=== PATIENT | male | born 1950 | race Caucasian/White ===

== ENCOUNTER 2016-06-26 08:39 | Inpatient (IN) | payer OTHER ==
[~2016-06-26] VITALS: Ht 170.2 cm; Wt 78.1 kg
[~2016-06-26 08:39] MED LIST: B/P MED; CATAPRES0.1 MG PO; CRESTOR20 MG PO; FLOMAX0.4 MG PO; KEFLEX500 MG PO; KLONOPIN0.5 M1 PO; KLONOPIN2 MG PO; LIBRIUM25 MG PO; METHADONE10 MG PO; NEXIUM20 MG PO; NOHOMEMEDS; PAXIL10 MG PO; PERCOCET 10/1 TABLET PO; PERCOCET 5/31 TABLET PO; PROZAC20 MG PO; PROZAC40 MG PO; ZESTRIL,PRINIV2.5 MG PO
[2016-06-26 09:59] LABS: EOSINOPHIL (%) 0.1 % (0-5); HEMATOCRIT 54.1 % (38.0-50.0); IMMATURE GRANULOCYTE (%) 0.3 % (0.0-0.7); INSTRUMENT ABS NEUTROPHIL CT 8.8 K/uL; LYMPHOCYTE COUNT 0.9 K/uL (1.0-2.8); MCH 26.8 PG (29.0-34.0); MCHC 32.3 G/DL (30.0-36.0); MCV 82.7 FL (86-99); MEAN PLAT.VOLUME 10.6 uM^3 (9.0-12.4); MONOCYTE (%) 5.3 % (3-12); MONOCYTE COUNT 0.5 K/uL (0-0.8); NEUTROPHIL (%) 85.7 % (45-76); NEUTROPHIL COUNT 8.8 K/uL (1.8-6.4); PLATELET COUNT 201 K/uL (156-360); RBC DIS.WIDTH-SD 40.6 % (39-53); RED BLOOD COUNT 6.54 M/uL (4.00-5.50); WHITE BLOOD COUNT 10.2 K/uL (4.1-10.2)
[2016-06-26 10:11] LABS: CHLORIDE 108 mEq/L (99-109); POTASSIUM 3.9 mEq/L (3.7-5.4); SODIUM 139 mEq/L (136-147)
[2016-06-26 10:13] LABS: GLUCOSE 110 mg/dL (70-99)
[2016-06-26 10:14] LABS: ANION GAP 9 MEQ/L (2-14)
[2016-06-26 10:15] LABS: TOTAL BILIRUBIN 0.8 mg/dL (0.0-1.0)
[2016-06-26 10:17] LABS: ALKALINE PHOSPHATASE 80 IU/L (3-129); GFR ESTIMATE (CALCULATED) > 59 mL/min/
[2016-06-26 10:18] LABS: UREA NITROGEN (BUN) 19 mg/dL (9-23)
[2016-06-26 10:20] LABS: LIPASE 11 U/L (1.0-51.0)
[2016-06-26 12:07] LABS: ADD MIUA? YES; BILIRUBIN NEGATIVE; BLOOD NEGATIVE; COLOR YELLOW ((YELLOW)); GLUCOSE (STRIP) 50; KETONES 5; LEUKOCYTES NEGATIVE; NITRITE NEGATIVE; PROTEIN (STRIP) NEGATIVE; SPECIFIC GRAVITY 1.028 (1.000-1.030); UROBILINOGEN 0.2 MG/DL (0.2-1.0)
[2016-06-26 12:21] LABS: BACTERIA RARE /HPF; EPITHELIAL CELLS NONE SEEN /HPF; MUCUS 2+ /LPF; RED BLOOD CELLS 0-5 /HPF (0-5); WHITE BLOOD CELLS 0-5 /HPF (0-5)
[2016-06-26 20:00] VITALS: BP 144/80
[2016-06-26 20:14] VITALS: BP 144/80
[2016-06-26 22:34] LABS: EOSINOPHIL (%) 0.6 % (0-5); EOSINOPHIL COUNT 0.1 K/uL (0-0.3); HEMATOCRIT 49.6 % (38.0-50.0); IMMATURE GRANULOCYTE (%) 0.3 % (0.0-0.7); INSTRUMENT ABS NEUTROPHIL CT 5.8 K/uL; MCH 26.9 PG (29.0-34.0); MCHC 31.9 G/DL (30.0-36.0); MCV 84.4 FL (86-99); MONOCYTE (%) 7.7 % (3-12); MONOCYTE COUNT 0.7 K/uL (0-0.8); NEUTROPHIL (%) 67.4 % (45-76); NEUTROPHIL COUNT 5.8 K/uL (1.8-6.4); PLATELET COUNT 180 K/uL (156-360); RBC DIS.WIDTH-CV 13.6 % (11.8-14.6); RBC DIS.WIDTH-SD 42.5 % (39-53); RED BLOOD COUNT 5.88 M/uL (4.00-5.50); WHITE BLOOD COUNT 8.6 K/uL (4.1-10.2)
[2016-06-26 22:43] LABS: CHLORIDE 110 mEq/L (99-109); POTASSIUM 4.1 mEq/L (3.7-5.4); SODIUM 138 mEq/L (136-147)
[2016-06-26 22:45] LABS: GLUCOSE 87 mg/dL (70-99)
[2016-06-26 22:46] LABS: ANION GAP 6 MEQ/L (2-14)
[2016-06-26 22:49] LABS: GFR ESTIMATE (CALCULATED) > 59 mL/min/; UREA NITROGEN (BUN) 16 mg/dL (9-23)
[2016-06-27 00:04] VITALS: BP 131/82
[2016-06-27 07:39] VITALS: BP 136/85
[2016-06-27 11:30] VITALS: BP 139/95
[2016-06-27 15:32] VITALS: BP 140/86
[2016-06-27 23:43] VITALS: BP 132/85
[2016-06-28 08:33] VITALS: BP 149/87
== END 2016-06-28 16:18 | disposition home or self-care (01) | DRG 389 ==
LOC: EME 08:39 → EDOF 15:25 → 3EAST 15:25
PROVIDERS: Emergency Medicine; Surgery
DX: K56.60 Unspecified intestinal obstruction (principal); F33.9 Major depressive disorder, recurrent, unspecified; F41.9 Anxiety disorder, unspecified; M19.90 Unspecified osteoarthritis, unspecified site; K57.30 Diverticulosis of large intestine without perforation or abscess without bleeding; E78.5 Hyperlipidemia, unspecified; I10 Essential (primary) hypertension; Z60.2 Problems related to living alone; N20.0 Calculus of kidney; N28.1 Cyst of kidney, acquired
CPT/HCPCS: 74020; 74177; 80048 91; 80053; 81003; 83605; 83690; 84484; 85025; 85025 91; 99281; 99285; J1170; J1650; J2270; J2405; J3010; J7030; J7120

== ENCOUNTER 2016-11-17 06:27 | Inpatient (IN) | payer OTHER ==
[~2016-11-17] VITALS: Ht 175.3 cm; Wt 85.0 kg
[2016-11-17 08:40] LABS: BASOPHIL COUNT 0.1 K/uL (0-0.1); EOSINOPHIL (%) 0.1 % (0-5); HEMATOCRIT 51.3 % (38.0-50.0); IMMATURE GRANULOCYTE (%) 0.5 % (0.0-0.7); IMMATURE GRANULOCYTE COUNT 0.1 K/uL; INSTRUMENT ABS NEUTROPHIL CT 14.9 K/uL; LYMPHOCYTE COUNT 0.9 K/uL (1.0-2.8); MCH 27.2 PG (29.0-34.0); MCHC 31.8 G/DL (30.0-36.0); MCV 85.6 FL (86-99); MEAN PLAT.VOLUME 10.4 uM^3 (9.0-12.4); MONOCYTE (%) 5.4 % (3-12); MONOCYTE COUNT 0.9 K/uL (0-0.8); NEUTROPHIL (%) 88.6 % (45-76); NEUTROPHIL COUNT 14.9 K/uL (1.8-6.4); PLATELET COUNT 209 K/uL (156-360); RBC DIS.WIDTH-SD 44.1 % (39-53); RED BLOOD COUNT 5.99 M/uL (4.00-5.50); WHITE BLOOD COUNT 16.8 K/uL (4.1-10.2)
[2016-11-17 08:45] LABS: PROTHROMBIN TIME 11.2 SEC (10.2-12.9)
[2016-11-17 08:51] LABS: CHLORIDE 108 mEq/L (99-109); SODIUM 141 mEq/L (136-147)
[2016-11-17 08:54] LABS: GLUCOSE 108 mg/dL (70-99)
[2016-11-17 08:55] LABS: ANION GAP 8 MEQ/L (2-14)
[2016-11-17 08:56] LABS: TOTAL BILIRUBIN 0.3 mg/dL (0.0-1.0)
[2016-11-17 08:57] LABS: ALKALINE PHOSPHATASE 80 IU/L (3-129); GFR ESTIMATE (CALCULATED) > 59 mL/min/
[2016-11-17 08:58] LABS: UREA NITROGEN (BUN) 18 mg/dL (9-23)
[2016-11-17 12:00] VITALS: BP 178/105
[2016-11-17 15:36] VITALS: BP 167/89
[2016-11-17 19:00] VITALS: BP 157/93
[2016-11-17 22:45] VITALS: BP 139/83
[2016-11-18 03:00] VITALS: BP 125/78
[2016-11-18 05:32] LABS: CHLORIDE 105 mEq/L (99-109); POTASSIUM 3.6 mEq/L (3.7-5.4); SODIUM 139 mEq/L (136-147)
[2016-11-18 05:34] LABS: GLUCOSE 125 mg/dL (70-99)
[2016-11-18 05:35] LABS: ANION GAP 11 MEQ/L (2-14)
[2016-11-18 05:37] LABS: TOTAL BILIRUBIN 0.8 mg/dL (0.0-1.0)
[2016-11-18 05:38] LABS: ALKALINE PHOSPHATASE 71 IU/L (3-129); GFR ESTIMATE (CALCULATED) > 59 mL/min/
[2016-11-18 05:39] LABS: UREA NITROGEN (BUN) 17 mg/dL (9-23)
[2016-11-18 05:42] LABS: HEMATOCRIT 45.6 % (38.0-50.0); MCH 27.5 PG (29.0-34.0); MCHC 31.8 G/DL (30.0-36.0); MCV 86.5 FL (86-99); MEAN PLAT.VOLUME 10.9 uM^3 (9.0-12.4); PLATELET COUNT 192 K/uL (156-360); RBC DIS.WIDTH-CV 14.1 % (11.8-14.6); RBC DIS.WIDTH-SD 45.4 % (39-53); RED BLOOD COUNT 5.27 M/uL (4.00-5.50); WHITE BLOOD COUNT 11.5 K/uL (4.1-10.2)
[2016-11-18 07:19] VITALS: BP 135/81
[2016-11-18 11:48] VITALS: BP 135/83
[2016-11-18 16:25] VITALS: BP 143/81
[2016-11-18 17:42] VITALS: BP 140/85
[2016-11-18 19:16] VITALS: BP 141/86
[2016-11-19 03:38] VITALS: BP 176/100
[2016-11-19 07:15] VITALS: BP 143/84
[2016-11-19] MEDS ORDERED: PERCOCET 10/1 TABLET PO (10:57)
[2016-11-19 14:55] VITALS: BP 142/88
== END 2016-11-19 16:04 | disposition home or self-care (01) | DRG 200 ==
LOC: EME 06:27 → EDOF 10:00 → ENRESERV 10:31 → 4EAST 11:51
PROVIDERS: Emergency Medicine; Surgery
PROC: 0W9B30Z Drainage of Left Pleural Cavity with Drainage Device, Percutaneous Approach (ICD-10-PCS; principal; 2016-11-17)
DX: S27.0XXA Traumatic pneumothorax, initial encounter (principal); S22.42XA Multiple fractures of ribs, left side, initial encounter for closed fracture; F32.9 Major depressive disorder, single episode, unspecified; F41.9 Anxiety disorder, unspecified; G89.29 Other chronic pain; W10.9XXA Fall (on) (from) unspecified stairs and steps, initial encounter; Z87.442 Personal history of urinary calculi
CPT/HCPCS: 71010; 71020; 71101; 80053; 85025; 85027; 85610; 90686; 99281; 99285; J1170; J2250; J2270; J3010; J3480; J7030; S0028

== ENCOUNTER 2016-12-17 20:51 | Emergency (ER) | payer OTHER ==
[~2016-12-17] VITALS: Ht 170.2 cm; Wt 78.9 kg
[2016-12-17] MEDS ORDERED: NORCO 5/3251 TABLET PO (21:24)
[2016-12-17] MEDS ORDERED: CLEOCIN300 MG PO (21:24)
[2016-12-17 21:58] VITALS: BP 124/92
== END 2016-12-17 21:58 | disposition home or self-care (01) ==
LOC: EME 20:51
DX: K04.7 Periapical abscess without sinus (principal); K02.9 Dental caries, unspecified; K03.81 Cracked tooth
CPT/HCPCS: 99281; 99283

== ENCOUNTER 2017-02-06 05:56 | Emergency (ER) | payer OTHER ==
[~2017-02-06] VITALS: Ht 175.3 cm; Wt 83.4 kg
[~2017-02-06 05:56] MED LIST changes: +CLEOCIN300 MG PO; +NORCO 5/3251 TABLET PO
[2017-02-06 08:23] LABS: BASOPHIL (%) 0.6 % (0-1); BASOPHIL COUNT 0.1 K/uL (0-0.1); EOSINOPHIL (%) 0.5 % (0-5); HEMATOCRIT 55.4 % (38.0-50.0); HEMOGLOBIN 17.9 G/DL (12.5-16.6); IMMATURE GRANULOCYTE (%) 0.3 % (0.0-0.7); LYMPHOCYTE COUNT 1.9 K/uL (1.0-2.8); MCH 27.1 PG (29.0-34.0); MCHC 32.3 G/DL (30.0-36.0); MCV 83.8 FL (86-99); MONOCYTE COUNT 0.7 K/uL (0-0.8); NEUTROPHIL (%) 65.6 % (45-76); NEUTROPHIL COUNT 5.2 K/uL (1.8-6.4); PLATELET COUNT 219 K/uL (156-360); RBC DIS.WIDTH-CV 15.1 % (11.8-14.6); RED BLOOD COUNT 6.61 M/uL (4.00-5.50)
[2017-02-06 08:33] LABS: ALBUMIN 3.8 g/dL (3.2-4.8); CHLORIDE 105 mEq/L (99-109); POTASSIUM 4.6 mEq/L (3.7-5.4); SODIUM 136 mEq/L (136-147)
[2017-02-06 08:35] LABS: GLUCOSE 103 mg/dL (70-99)
[2017-02-06 08:36] LABS: TOTAL PROTEIN 7.7 g/dL (6.4-8.3)
[2017-02-06 08:37] LABS: TOTAL BILIRUBIN 0.4 mg/dL (0.0-1.0)
[2017-02-06 08:39] LABS: ALKALINE PHOSPHATASE 121 IU/L (3-129); CREATININE 0.9 mg/dL (0.6-1.3); GFR ESTIMATE (CALCULATED) > 59 mL/min/ (58.99-99999)
[2017-02-06 08:40] LABS: UREA NITROGEN (BUN) 21 mg/dL (9-23)
[2017-02-06 08:41] LABS: AST (GOT) 27 IU/L (2-34)
[2017-02-06 08:42] LABS: ALT (GPT) 33 IU/L (3-49)
[2017-02-06 08:43] LABS: TROP-I INTERPRETATION NEGATIVE; TROPONIN-I < 0.01 ng/mL (0.0-0.30)
[2017-02-06 09:56] LABS: D-DIMER ELISA < 150.00 ng/mLDDU (<230)
[2017-02-06 11:15] LABS: TROP-I INTERPRETATION NEGATIVE; TROPONIN-I < 0.01 ng/mL (0.0-0.30)
[2017-02-06] MEDS ORDERED: LIDODERM 5% P1 PATCH TD (12:02)
[2017-02-06] MEDS ORDERED: NAPROXEN500 MG PO (12:02)
[2017-02-06 13:03] VITALS: BP 135/91
== END 2017-02-06 13:21 | disposition home or self-care (01) ==
LOC: EME 05:56
PROVIDERS: Physician Assistant
DX: R09.1 Pleurisy (principal); M54.6 Pain in thoracic spine
CPT/HCPCS: 71046; 80053; 84484; 85025; 85379; 93005; 99281; 99285; J1885; J2270; J3010; J7120

== ENCOUNTER 2017-07-09 15:44 | Inpatient (IN) | payer OTHER ==
[~2017-07-09] VITALS: Ht 185.4 cm; Wt 81.6 kg
[2017-07-09] VITALS (9 sets, daily range): BP systolic 108–134; BP diastolic 71–98
[~2017-07-09 15:44] MED LIST changes: +LIDODERM 5% P1 PATCH TD; +NAPROXEN500 MG PO
[2017-07-09 15:57] LABS: BASOPHIL (%) 0.6 % (0-1); BASOPHIL COUNT 0.1 K/uL (0-0.1); EOSINOPHIL (%) 0.6 % (0-5); EOSINOPHIL COUNT 0.1 K/uL (0-0.3); HEMATOCRIT 43.9 % (38.0-50.0); HEMOGLOBIN 13.7 G/DL (12.5-16.6); IMMATURE GRANULOCYTE (%) 1.2 % (0.0-0.7); LYMPHOCYTE COUNT 3.1 K/uL (1.0-2.8); MCH 27.8 PG (29.0-34.0); MCHC 31.2 G/DL (30.0-36.0); MONOCYTE (%) 5.1 % (3-12); MONOCYTE COUNT 0.5 K/uL (0-0.8); NEUTROPHIL (%) 57.5 % (45-76); NEUTROPHIL COUNT 5.2 K/uL (1.8-6.4); PLATELET COUNT 173 K/uL (156-360); RBC DIS.WIDTH-CV 13.2 % (11.8-14.6); RBC DIS.WIDTH-SD 43.3 % (39-53); RED BLOOD COUNT 4.93 M/uL (4.00-5.50)
[2017-07-09 16:09] LABS: AMYLASE 102 IU/L (1-118); CHLORIDE 106 mEq/L (99-109); POTASSIUM 3.8 mEq/L (3.7-5.4); SODIUM 138 mEq/L (136-147)
[2017-07-09 16:11] LABS: GLUCOSE 232 mg/dL (70-99)
[2017-07-09 16:14] LABS: SERUM ETHYL ALCOHOL < 10 mg/dL
[2017-07-09 16:15] LABS: CREATININE 1.3 mg/dL (0.6-1.3); GFR ESTIMATE (CALCULATED) 59 mL/min/ (58.99-99999)
[2017-07-09 16:16] LABS: UREA NITROGEN (BUN) 20 mg/dL (9-23)
[2017-07-09 16:18] LABS: LIPASE 20 U/L (1.0-51.0)
[2017-07-09 17:16] LABS: BASOPHIL (%) 0.3 % (0-1); EOSINOPHIL (%) 0.2 % (0-5); HEMATOCRIT 43.7 % (38.0-50.0); HEMOGLOBIN 14.3 G/DL (12.5-16.6); IMMATURE GRANULOCYTE (%) 0.7 % (0.0-0.7); LYMPHOCYTE (%) 5.9 % (15-42); LYMPHOCYTE COUNT 0.9 K/uL (1.0-2.8); MCH 27.9 PG (29.0-34.0); MCHC 32.7 G/DL (30.0-36.0); MCV 85.4 FL (86-99); MONOCYTE (%) 3.9 % (3-12); MONOCYTE COUNT 0.6 K/uL (0-0.8); NEUTROPHIL COUNT 13.4 K/uL (1.8-6.4); PLATELET COUNT 156 K/uL (156-360); RBC DIS.WIDTH-CV 13.8 % (11.8-14.6); RBC DIS.WIDTH-SD 43.5 % (39-53); RED BLOOD COUNT 5.12 M/uL (4.00-5.50)
[2017-07-09 17:24] LABS: INTER. NORMALIZED RATIO 1.2
[2017-07-09 17:27] LABS: PTT 29.7 SEC (25-37)
[2017-07-09 17:28] LABS: ALBUMIN 2.8 g/dL (3.2-4.8); POTASSIUM 3.9 mEq/L (3.7-5.4); SODIUM 144 mEq/L (136-147)
[2017-07-09 17:30] LABS: CHLORIDE 117 mEq/L (99-109); TOTAL PROTEIN 4.4 g/dL (6.4-8.3)
[2017-07-09 17:32] LABS: GLUCOSE 102 mg/dL (70-99); TOTAL BILIRUBIN 0.5 mg/dL (0.0-1.0)
[2017-07-09 17:34] LABS: ALKALINE PHOSPHATASE 62 IU/L (3-129); CREATININE 0.9 mg/dL (0.6-1.3); GFR ESTIMATE (CALCULATED) > 59 mL/min/ (58.99-99999)
[2017-07-09 17:35] LABS: UREA NITROGEN (BUN) 19 mg/dL (9-23)
[2017-07-09 17:36] LABS: AST (GOT) 52 IU/L (2-34)
[2017-07-09 17:37] LABS: ALT (GPT) 42 IU/L (3-49)
[2017-07-09 20:48] LABS: COMMENTS - BLOOD GASES A+C+; DEVICE VENT; SITE RR
[2017-07-09 20:49] LABS: BASE EXCESS -5.8 mEq/L (-3 to +3); BICARBONATE 18.8 mEq/L (22-26); CARBOXY HGB 1.3 % (0-5); FI02 100 %; MECHANICAL RATE 20 resp/min; METHEMOGLOBIN 1.3 % (0-1.5); MODE AC; PCO2 34 mm Hg (35-45); PEEP 5 CM/H20; PO2 308 mm Hg (80-100); TIDAL VOLUME 500 ML; TOTAL RESP RATE 20 resp/min; pH 7.35 (7.35-7.45)
[2017-07-09 21:18] LABS: TRIGLYCERIDES 85 MG/DL (Normal: <150)
[2017-07-09 21:20] LABS: CREATINE KINASE 1298 IU/L (1-294)
[2017-07-10] VITALS (11 sets, daily range): BP systolic 112–162; BP diastolic 67–86
[2017-07-10 03:08] LABS: APPEARANCE CLEAR ((CLEAR)); BILIRUBIN NEGATIVE; BLOOD SMALL; COLOR YELLOW ((YELLOW)); GLUCOSE (STRIP) 50; KETONES 80; LEUKOCYTES NEGATIVE; NITRITE NEGATIVE; PROTEIN (STRIP) NEGATIVE; SPECIFIC GRAVITY 1.025 (1.000-1.030); UROBILINOGEN 0.2 MG/DL (0.2-1.0)
[2017-07-10 03:10] LABS: BACTERIA NONE SEEN /HPF; EPITHELIAL CELLS NONE SEEN /HPF; MUCUS TRACE /LPF; RED BLOOD CELLS 0-5 /HPF (0-5); UCUL ADDED? NO; WHITE BLOOD CELLS 0-5 /HPF (0-5)
[2017-07-10 03:15] LABS: AMPHETAMINE NEGATIVE (500 ng/mL); BARBITURATES NEGATIVE (200 ng/mL); BENZODIAZEPINES NEGATIVE (150 ng/mL); BUPRENORPHINE NEGATIVE (10 ng/mL); COCAINE NEGATIVE (150 ng/mL); METHADONE NEGATIVE (200 ng/mL); METHAMPHETAMINE NEGATIVE (500 ng/mL); OPIATES (MORPHINE) NEGATIVE (100 ng/mL); OXYCODONE PRESUMPTIVE POSITIVE (100 ng/mL); PHENCYCLIDINE NEGATIVE (25 ng/mL); PROPOXYPHENE NEGATIVE (300 ng/mL); THC CANNABINOIDS NEGATIVE (50 ng/mL); TRICYCLIC ANTIDEPRESSANTS NEGATIVE (300 ng/mL)
[2017-07-10 05:15] LABS: HEMATOCRIT 48.2 % (38.0-50.0); HEMOGLOBIN 16.1 G/DL (12.5-16.6); MCH 27.9 PG (29.0-34.0); MCHC 33.4 G/DL (30.0-36.0); MCV 83.4 FL (86-99); PLATELET COUNT 169 K/uL (156-360); RBC DIS.WIDTH-CV 14.6 % (11.8-14.6); RED BLOOD COUNT 5.78 M/uL (4.00-5.50); WHITE BLOOD COUNT 14.5 K/uL (4.1-10.2)
[2017-07-10 05:20] LABS: COMMENTS - BLOOD GASES C+A+; DEVICE VENT; FI02 40 %; MECHANICAL RATE 20 resp/min; MODE AC; PEEP 5 CM/H20; SITE LR; TIDAL VOLUME 500 ML; TOTAL RESP RATE 21 resp/min
[2017-07-10 05:21] LABS: BASE EXCESS -4.7 mEq/L (-3 to +3); BICARBONATE 18.4 mEq/L (22-26); CARBOXY HGB 1.5 % (0-5); METHEMOGLOBIN 1.5 % (0-1.5); PCO2 29 mm Hg (35-45); PO2 106 mm Hg (80-100); pH 7.41 (7.35-7.45)
[2017-07-10 05:40] LABS: ALBUMIN 3.3 g/dL (3.2-4.8); CHLORIDE 113 mEq/L (99-109); POTASSIUM 3.7 mEq/L (3.7-5.4); SODIUM 144 mEq/L (136-147)
[2017-07-10 05:41] LABS: MAGNESIUM 1.8 mg/dL (1.3-2.7)
[2017-07-10 05:42] LABS: GLUCOSE 121 mg/dL (70-99)
[2017-07-10 05:43] LABS: TOTAL PROTEIN 5.3 g/dL (6.4-8.3)
[2017-07-10 05:46] LABS: ALKALINE PHOSPHATASE 66 IU/L (3-129); CREATININE 0.8 mg/dL (0.6-1.3); GFR ESTIMATE (CALCULATED) > 59 mL/min/ (58.99-99999); PHOSPHORUS 2.2 mg/dL (2.5-4.9)
[2017-07-10 05:47] LABS: UREA NITROGEN (BUN) 16 mg/dL (9-23)
[2017-07-10 05:48] LABS: AST (GOT) 62 IU/L (2-34)
[2017-07-10 05:49] LABS: ALT (GPT) 45 IU/L (3-49)
== END 2017-07-10 10:33 | disposition short-term general hospital (02) | DRG 957 ==
LOC: TRA 15:44 → EDOF 17:25 → 4WEST 17:25 → ENRESERV 17:30 → 4WEST 17:45 → ENRESERV 18:15 → CANRESERV 18:30 → 4WEST 07-10 10:33
PROVIDERS: Emergency Medicine Emergency Medical Services; Surgery
DX: S02.413A LeFort III fracture, initial encounter for closed fracture (principal); S02.0XXA Fracture of vault of skull, initial encounter for closed fracture; S02.19XA Other fracture of base of skull, initial encounter for closed fracture; S06.5X9A Traumatic subdural hemorrhage with loss of consciousness of unspecified duration, initial encounter; S06.6X9A Traumatic subarachnoid hemorrhage with loss of consciousness of unspecified duration, initial encounter; S02.82XA Fracture of other specified skull and facial bones, left side, initial encounter for closed fracture; S02.81XA Fracture of other specified skull and facial bones, right side, initial encounter for closed fracture; S02.651A Fracture of angle of right mandible, initial encounter for closed fracture; S27.2XXA Traumatic hemopneumothorax, initial encounter; S22.42XA Multiple fractures of ribs, left side, initial encounter for closed fracture; S01.81XA Laceration without foreign body of other part of head, initial encounter; S27.892A Contusion of other specified intrathoracic organs, initial encounter; V89.2XXA Person injured in unspecified motor-vehicle accident, traffic, initial encounter; J96.01 Acute respiratory failure with hypoxia; E87.2 Acidosis; H73.893 Other specified disorders of tympanic membrane, bilateral; H57.04 Mydriasis; R40.2431 Glasgow coma scale score 3-8, in the field [EMT or ambulance]; I46.8 Cardiac arrest due to other underlying condition; I95.9 Hypotension, unspecified; I87.8 Other specified disorders of veins; F41.9 Anxiety disorder, unspecified; F32.9 Major depressive disorder, single episode, unspecified
CPT/HCPCS: 36600; 70450; 70486; 71045; 71260; 72125; 72129; 72132; 74177; 80048; 80053; 81003; 82150; 82550; 82803; 83605; 83690; 83735; 84100; 84478; 85025; 85025 91; 85027; 85610; 85730; 86850; 86900; 86901; 86920; 87040; 87070; 87077; 87147; 87186; 87205; 87641; 90832; 93306; 94002; 94003; 94640; 94640 76; 99202; 99281; 99285; B4087; C1751; C1894; G0480; J0330; J0696; J1100; J1953; J2405; J3010; J7040; J7050; P9016; P9035; S0028